=== PATIENT | male | born 1965 | race Caucasian/White ===

== ENCOUNTER 2019-02-24 14:18 | Emergency (ER) | payer SELFPAY ==
[~2019-02-24] VITALS: Ht 182.9 cm; Wt 148.1 kg
[2019-02-24] MEDS ORDERED: LOSA50TA88 PO ×2 (14:24→18:50)
[2019-02-24] MEDS ORDERED: metoprolol PO (14:24)
[2019-02-24] MEDS ORDERED: METO50TA7 PO ×2 (14:31→18:50)
[2019-02-24] MEDS ORDERED: LOSARTAN 50 MG TAB PO ONE ×2 (16:30→19:00)
[2019-02-24] MEDS ORDERED: METOPROLOL TART 50 MG TAB PO ONE ×2 (16:30→19:00)
[2019-02-24 17:01] LABS: ALBUMIN 3.5 GM/DL (3.2-5.2); ALT/SGPT 43 U/L (12-78); BILIRUBIN,DIRECT < 0.1 MG/DL (0.0-0.2); BILIRUBIN,TOTAL 0.3 MG/DL (0.2-1.0); BLOOD UREA NITROGEN 22 MG/DL (7-18); CALCIUM LEVEL 8.8 MG/DL (8.5-10.1); CARBON DIOXIDE LEVEL 24 MEQ/L (21-32); CHLORIDE LEVEL 105 MEQ/L (98-107); CREATININE FOR GFR 0.95 MG/DL (0.70-1.30); GLOMERULAR FILTRATION RATE > 60.0 (>56); GLUCOSE, FASTING 85 MG/DL (70-100); LIPASE 158 U/L (73-393); POTASSIUM SERUM 4.1 MEQ/L (3.5-5.1); SODIUM LEVEL 140 MEQ/L (136-145); TOTAL PROTEIN 6.9 GM/DL (6.4-8.2)
[2019-02-24 19:55] VITALS: BP 131/90
--- NOTE | 2019-02-24 20:36 | ECGEPIP ---
[facility] - ED Test Date: 2019-02-24 Pat Name: SOFIYA MO Department: Room: - Gender: Male Social Secretary: : [id number] Requested By: ODALYS LILLY PA-C. Order Number: [id number] Reading MD: Yobani Chilel Measurements Intervals [place] Rate: 62 P: 34 WY: 149 QRS: 11 QRSD: 118 T: 20 QT: 422 QTc: 429 Interpretive Statements SINUS RHYTHM INFERIOR MYOCARDIAL INFARCTION, PROBABLY OLD NO PRIORS FOR COMPARISON Electronically Signed on 02-24-2019 20:36:26 EST by Yobani Chilel
== END 2019-02-24 20:07 | disposition home or self-care (01) ==
LOC: M ED 14:18
DX: I10 Essential (primary) hypertension (principal); R31.29 Other microscopic hematuria; Z79.899 Other long term (current) drug therapy; F17.210 Nicotine dependence, cigarettes, uncomplicated

== ENCOUNTER 2020-01-04 16:01 | Emergency (ER) | payer OTHER, SELFPAY ==
[~2020-01-04] VITALS: Ht 182.9 cm; Wt 151.2 kg
[~2020-01-04 16:01] MED LIST: LOSA50TA88 PO; METO50TA7 PO; metoprolol PO
[2020-01-04] MEDS ORDERED: LOSA50TA88 PO (17:04)
[2020-01-04] MEDS ORDERED: LOPR1TAB6 PO (17:04)
[2020-01-04 17:46] VITALS: BP 128/74
== END 2020-01-04 17:57 | disposition home or self-care (01) ==
LOC: M ED 16:01
DX: Z76.0 Encounter for issue of repeat prescription (principal); I10 Essential (primary) hypertension; F17.200 Nicotine dependence, unspecified, uncomplicated